=== PATIENT | male | born 1945 | race Caucasian/White ===

== ENCOUNTER 2016-11-08 21:05 | Emergency (ER) | payer MEDICARE ==
[2016-11-08 21:09] VITALS: BP 168/87; PULSE 71; RESP 20; O2SAT 97
--- NOTE | 2016-11-08 22:13 | ED.REPORT ---
HPI-Bite: Human/Animal Date of Service Nov 08, 2016 ED Provider: Prosper Briggs MD Pt is a 71 y.o. male who presents to the ED c/o a cat bite to his right index finger onset yesterday. He reports associated redness, swelling, and itchiness. Denies fever and chills. He reports that his cat is UTD on their vaccinations. He claims that he had a tetanus vaccination in 2013. Nursing Notes Stated Complaint: CAT BITE Chief Complaint: Extremity Trauma Nursing Notes Reviewed: Yes (Behalf not reconciled) Allergies: Coded Allergies: No Known Allergies (Unverified , 11/08/16) General Time Seen by MD: 22:11 Chief Complaint Cat bite Hx Obtained From: Patient Arrived By: Walk-in Onset Occurred: Yesterday Context of Onset: Occurred at home, Vaccinations up to date Symptom Duration: Since onset Progression Since Onset: Redness developing Location: : Hand right Quality: Painful Severity: Current: Mild Context: Immunizations Immunizations: Tetanus up to date Past Medical History Past Medical History History of premature atrial contractions Reports: Hypertension, Denies: Diabetes mellitus Past Surgical History None reported Social History Alcohol Use: "Social" Other Social History: Ambulatory Status Independent Review of Systems Constitutional: Denies: Chills, Fever Skin: Reports Rash (Redness) Complete sys rev & neg: except as marked. Musculoskeletal: Reports: Extremity pain (Right index finger), Extremity swelling (Right index finger) Allergy / Immune: Reports: Itching Physical Exam Vital Signs Vital Signs (First) Date Time Temp Pulse Resp B/P Pulse Ox O2 Delivery O2 Flow Rate FiO2 11/08/16 21:09 36.2 71 20 168/87 97 11/08/16 23:08 Room Air Initial VS: Reviewed, Vital signs normal Head / Eyes: Atraumatic, Normocephalic, PERRL Respiratory: Breath sounds normal, Clear to auscultation, No respiratory distress Cardiovascular: Regular rate & rhythm, Intact distal pulses Abdomen / GI: No distention Neurologic: Alert, Oriented, Nonfocal Psychiatric: Mood/affect normal, Behavior normal, Normal thought content General/Constitutional: Awake, Alert, No acute distress, Well appearing, Well developed, Well hydrated, Well nourished, Not toxic appearing Color / Condition: Positive: Erythema generalized (Right index finger, slight) , Lymphangitis present Rash / Lesion Notes: Ascending lymphangitis down right forearm Respiratory / Chest: Atraumatic, Breath sounds NL, Breath sounds = bilat, No respiratory distress Cardiovascular: Heart rate NL, Regular rhythm, Heart sounds NL Wrist / Hand: Neurologic intact, Vascular intact Finger Exam : Finger Exam: Positive: Erythema present (Slight), Finger name... (R index), Swelling present... (Mild) Trauma / Burn / Environmental: Positive: Bite injury, Puncture wound 1 puncture wound to medial aspect near DIP of right index finger. 1 puncture wound proximal to PIP, lateral aspect, of right index finger. Preserved ROM Interpretation & Diagnostics X-Ray Interpretation Xray Interpretation: IMPRESSION: No foreign body observed. X-Ray Ordered: Hand right Interpretation / Wet Read by: Wet read ED physician Interpretation: Normal exam Re-Eval/Medical Decision Med Decision/Clinical Course This is a 71-year-old male's right hand dominant and up-to-date on immunizations who presents with an infected cat bite the right index finger after being bitten by his own cat yesterday. He self some faint redness, something swollen, and there is also some mild ascending lymphangitis starting up the wrist. Patient denies fevers chills or systemic symptoms. He has no major comorbidities. Mild hypertension, sinus smoker or diabetic. he clinically appears well but does have infections of the finger. There is no clinical findings of joint involvement, and no findings of flexor tendon or extensor tendon involvement. Radiographs are negative for fracture or foreign body. The patient received initial dose of Unasyn with probenecid. The infection was circumscribed with a skin pen, and the patient is being discharged on a course of Augmentin given the likely pathogen is P [place]. Patient still reasonable For outpatient follow-up, routine precautions reviewed. Patient is discharged in good condition Old records Re-Evaluation/Progress : Time of Eval: 22:15 Re-Evaluation/Progress Note: Physical exam performed. Discussed need for IV antibiotics in ED, pt understands and agrees with plan. Counseled Regarding: Diagnosis, Lab results, Need for follow-up, When/why to return to ED Discharge & Departure Impression: Primary Impression: Cat bite of right hand with infection Encounter type: initial encounter Qualified Code: S61.451A - Open bite of right hand, initial encounter Disposition: Home Discharge Condition All VS Reviewed: Yes Condition: Improved Additional Instructions: 1. You received an injection of the antibiotic Unasyn tonight. 2. Starting tomorrow take the antibiotic Augmentin (Amoxicillin/Clavulanate) 875mg one tab twice a day for 10 days. 3. Symptoms are expected to be improving in about 2 days. If not improving, or if new or worsening symptoms - return to the ED. Referrals: Asad Marley MD (PCP) Mercedes Attestation Portions of this note were transcribed by Leilani Bell. I, Dr. Briggs personally performed the history, physical exam and medical decision-making; I reviewed and confirmed the accuracy of the information in the transcribed note. Signed by: Mercedes Negrete, 11/08/16 and 0404 copies to: Asad Marley MD, Matthew F MD Nov 08, 2016 22:13 LEILANI BELL Nov 08, 2016 22:18
[2016-11-08] MEDS ORDERED: _Amoxicillin-Clavulanate 875-125 mg Tablet PO SCH (22:15)
[2016-11-08] MEDS ORDERED: Ampicillin-Sulbactam Inj 3,000 MG in 0.9% Sodium Chloride 100 ML IV ONE (22:20)
[2016-11-08 23:08] VITALS: BP 152/76; PULSE 97; RESP 16; O2SAT 95
--- NOTE | 2016-11-09 09:23 | DRSVH ---
PROCEDURE: X-RAY FINGERS, TWO VIEWS INDICATIONS: cat bite TECHNIQUE: AP hand, 2 views of the second finger(s) acquired. COMPARISON: None. FINDINGS: Bones: No fractures or dislocations. No suspicious bony lesions. First CMC joint narrowing and per iarticular osteophyte formation otherwise minimal hypertrophic changes involving the interphalangeal joints. Soft tissues: No suspicious soft tissue calcifications. Small soft tissue punctate radiodensity of the second digit. 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 Dictated by: Michael Jaramillo [facility] Interpreted: Jacky Hall MD on 11/09/2016 at 9:21 Transcribed by: VALE on 11/09/2016 at 9:23 Approved by: Jacky Hall M.D. on 11/09/2016 at 10:52
== END 2016-11-08 23:09 | disposition home or self-care (01) ==
LOC: SED 21:05
DX: S61.451A Open bite of right hand, initial encounter (principal); W55.01XA Bitten by cat, initial encounter; Y93.9 Activity, unspecified; Y92.009 Unspecified place in unspecified non-institutional (private) residence as the place of occurrence of the external cause; Y99.9 Unspecified external cause status; I10 Essential (primary) hypertension
CPT/HCPCS: 73140; 96365; 99284; J0295